=== PATIENT | female | born 1960 | race Caucasian/White ===

== ENCOUNTER → 2020-11-25 09:38 | Outpatient (CLI) | payer BC, SELFPAY ==
[2020-11-25] MEDS: COVID-19 VACC #1, MRNA(MOD) 100 MCG/0.5 ML VIAL IM (09:45)
== END ==
PROVIDERS: PCP Family Medicine; Visit Provider Internal Medicine
DX: Z23 Encounter for immunization (principal)
CPT/HCPCS: 0011A; 91301

== ENCOUNTER → 2020-12-23 09:22 | Outpatient (CLI) | payer BC, SELFPAY ==
[2020-12-23] MEDS: COVID-19 VACC #2, MRNA(MOD) 100 MCG/0.5 ML VIAL IM (09:31)
== END ==
PROVIDERS: PCP Family Medicine; Visit Provider Internal Medicine
DX: Z23 Encounter for immunization (principal)
CPT/HCPCS: 0012A; 91301